=== PATIENT | male | born 1975 | race Caucasian/White ===

== ENCOUNTER 2025-03-29 13:31 | Emergency (ER) | payer BC, SELFPAY ==
[2025-03-29 13:35] VITALS: BP 126/75
[2025-03-29 14:30] VITALS: BMI 30.8
--- NOTE | 2025-03-29 14:35 | EDRN ---
Pt had the bucket of a tractor come down on his L foot, swelling noted to area below L great toe.
[2025-03-29 14:40] VITALS: BP 125/77
--- NOTE | 2025-03-29 14:45 | EDRN ---
Dr. Espinal in room w/ pt.
--- NOTE | 2025-03-29 14:54 | ED.MUSCINJ ---
HPI-Injury
General
Chief Complaint: Musculo-Skeletal Complaint
Time Seen by Provider: 03/29/25 14:30
History of Present Illness-Injury
Initial Injury comments:
49-year-old male presenting to the emergency department with left foot pain. Patient reports prior to arrival he was at work and a machine fell onto his left foot. He notes that it was get of the machine, however had significant force with
hydraulics. The bucket landed on the top of the first digit. She has been able to ambulate. Denies numbness or tingling. Denies any weakness. Denies any additional injuries.
Phy Exam
Physical Exam
Physical Exam:
General: Well-appearing, no clinical signs of dehydration, nontoxic and in no acute distress
HEENT: protecting airway
Neck: appears supple
CV: Normal heart rate
Resp: No accessory muscle use, no increased work of breathing
Abd: No distention
Extremities: No deformities, mild swelling above the first MCP joint. No erythema or warmth. Distal sensation and pulses intact. Range of motion intact
Neuro: alert, no focal neurologic deficit
: deferred
Rectal: deferred
Psych: Normal affect
Skin: Intact
Injury Course
Orders/Labs/Results
Orders:
Orders
03/29/25 13:34
Foot, Left 3 View [CR Foot - Left Min 3 Views] Urgent
Comment:
Reason For Exam: pain
MDM/Problems Addressed
MDM/Problems Addressed:
49-year-old male presenting for left foot pain after a work injury. Vital signs are normal.
On exam, patient resting comfortably, no acute distress or discomfort. Overall benign examination of the foot. No significant deformity, minimal swelling above the left first MCP joint with tenderness on palpation. No neurovascular compromise.
X-ray obtained prior to my assessment, no fracture or malalignment. Suspect soft tissue contusion. Feel stable for discharge with outpatient continued supportive therapy. Strict return precautions discussed and patient verbalized understanding.
*Pulse Oximetry
SaO2: 97
Oxygen Mode of Delivery: Room air
Patient hypoxic: no
*Critical Care Note
Total Time (30-74mins, 75-104mins- exclusive of procedures): Not Applicable
ED Attending Note
-
Portions of this chart may have been created with voice recognition software.� Occasional wrong word or��sound alike� substitutions may have occurred due to the inherent limitations of voice recognition software.
Discharge Plan
Departure
Patient Disposition: Home (Routine Discharge)
Date of Disposition: 03/29/25
Time of Disposition: 14:54
Patient with high blood pressure during this ER visit?: No
Condition: Good
Discharge Problem:
Contusion of foot, left
Instructions: Foot sprain - ED discharge instructions, Contusion
Activity Restrictions/Additional Instructions:
You were seen in the emergency department for a foot injury
You were found to have normal x-ray of your foot without any evidence of a fracture. We suspect that you have a contusion/bruise to the top of your foot.
Please follow-up closely with your primary care physician.
Return to the emergency department for any worsening of your symptoms, or any development of chest pain, difficulty breathing, abdominal pain with persistent vomiting and inability to tolerate food or liquid by mouth (concern for dehydration),
weakness, headache or confusion, fever greater than 100.4, or any additional symptoms that are concerning to you.
Thank you for choosing [facility].
Interventions
Interventions:
*Risk Screen - Suicide Last Done: 03/29/25 14:31
*General Assessment Last Done: 03/29/25 14:31
*Neglect/Abuse Screening Last Done: 03/29/25 14:31
*ED- Fall Risk Assessment Last Done: 03/29/25 14:31
*ED COVID-19 Vaccine History Last Done: 03/29/25 14:31
ED-Musculoskeletal Assessment Last Done: 03/29/25 14:31
Discharge Date and Time
Print Language: GUAMANIAN
== END 2025-03-29 15:19 | disposition home or self-care (01) ==
LOC: EMR 13:31
PROVIDERS: EMERGENCY PHYSICIAN Student in an Organized Health Care Education/Training Program
DX: S90.32XA Contusion of left foot, initial encounter (principal); M79.89 Other specified soft tissue disorders; W31.89XA Contact with other specified machinery, initial encounter; Y93.89 Activity, other specified; Y92.89 Other specified places as the place of occurrence of the external cause; Y99.0 Civilian activity done for income or pay
CPT/HCPCS: 99283; 73630